=== PATIENT | female | born 1955 | race Caucasian/White ===

== ENCOUNTER 2017-07-10 06:21 | Outpatient (CLI) | payer SELFPAY | END 2017-07-10 06:22 | disposition EMS.NT | LOC: EMS 06:21 | PROVIDERS: ATTEND Surgery | DX: S80.11XA Contusion of right lower leg, initial encounter (principal); W13.8XXA Fall from, out of or through other building or structure, initial encounter; Y93.01 Activity, walking, marching and hiking; Y92.020 Kitchen in mobile home as the place of occurrence of the external cause ==

== ENCOUNTER 2019-04-22 18:13 | Emergency (ER) | payer OTHER ==
[2019-04-22 18:23] VITALS: BP 154/87
--- NOTE | 2019-04-22 18:27 | ED Physician Documentation ---
PD HPI UPPER EXT INJURY - Stated complaint Stated Complaint: R HAND LAC - Chief complaint Chief Complaint: Laceration - History obtained from History obtained from: Patient - History of Present Illness Location: Right (63-year-old woman who is up-to-date on tetanus who is on warfarin for lupus anticoagulant with history of central retinal vein occlusion in the right eye presents after cutting herself while washing dishes at home just prior to arrival.) Review of Systems Constitutional: denies: Fever, Chills Cardiac: reports: Reviewed and negative Respiratory: reports: Reviewed and negative : reports: Reviewed and negative PD PAST MEDICAL HISTORY - Allergies Allergies/Adverse Reactions: Allergies Allergy/AdvReac Type Severity Reaction Status Date / Time Sulfa (Sulfonamide Allergy Unknown Verified 04/22/19 18:24 Antibiotics) PD ED PE NORMAL - Vitals Vital signs reviewed: Yes - General General: Alert and oriented X 3, No acute distress - Extremities Extremities: Other (There is a 1 cm shallow skin defect without any tissue left in place, i.e. a skin avulsion just proximal to the fifth metacarpal head dorsally on the right hand.) - Neuro Neuro: Alert and oriented X 3, Normal speech Results - Vitals Vitals: Vital Signs - 24 hr 04/22/19 18:17 Temperature 36.4 C L Heart Rate 71 Respiratory 16 Rate Blood Pressure 154/87 H O2 Saturation 99 Oxygen O2 Source Room air PD MEDICAL DECISION MAKING - ED course ED course: Irrigated and then dressed with Gelfoam and a pressure dressing to stanch the bleeding. Departure - Departure Disposition: 01 Home, Self Care Clinical Impression: Skin avulsion Condition: Good Record reviewed to determine appropriate education?: Yes Instructions: ED Avulsion Dermal Comments: Keep the current dressing on until Tuesday morning, remove it, and then you can just simply wash it with soap and water and keep it covered with a Band-Aid and some nonstick antibiotic ointment such as bacitracin which is available [id number]. Wound check with your doctor in about a week. Your INR today is 2.8. Return if worse.
== END 2019-04-22 18:45 | disposition home or self-care (01) ==
LOC: ED 18:13
DX: S61.411A Laceration without foreign body of right hand, initial encounter (principal); W45.8XXA Other foreign body or object entering through skin, initial encounter; Y93.G1 Activity, food preparation and clean up; Y92.009 Unspecified place in unspecified non-institutional (private) residence as the place of occurrence of the external cause; Z79.01 Long term (current) use of anticoagulants
CPT/HCPCS: 85610; 99282; 99283

== ENCOUNTER 2022-03-16 18:43 | Emergency (ER) | payer MEDICARE, OTHER ==
[2022-03-16] MEDS ORDERED: DOXYCYCLINE 100 MG TABLET PO STA (19:40)
[2022-03-16] MEDS ORDERED: guaiFENesin/CODEINE 5 ML UDC PO STA (19:40)
--- NOTE | 2022-03-16 19:42 | ED Physician Documentation ---
History of Present Illness - Stated complaint Stated Complaint: SORE THROAT, SOA, COJESTED - Chief complaint Chief Complaint: General - History obtained from History obtained from: Patient, Family - Additonal information Additional information: This is a 66-year-old woman with longstanding type 1 diabetes, history of retinal vein occlusion of the right eye with blindness there, who developed an illness starting 5 days ago marked by sore throat, productive cough and fatigue. She is short of breath with it. She notes no fevers. She did not check herself for COVID but notes that she had COVID a few months ago and this is quite different and declines COVID testing here. 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: Hysterectomy HEENT: Tonsil/Adenoidectomy - Present Medications Home Medications: Ambulatory Orders Medication Instructions Recorded Confirmed Albuterol Sulf [Ventolin Hfa 1 - 2 puffs INH Q4HR PRN #1 each 03/16/22 Inhaler] Doxycycline [Vibramycin] 100 mg PO BID #14 tablet 03/16/22 guaiFENesin/CODEINE [Robitussin AC] 5 - 10 ml PO Q6H PRN #120 ml 03/16/22 - Allergies Allergies/Adverse Reactions: Allergies Allergy/AdvReac Type Severity Reaction Status Date / Time ketorolac Allergy Edema Verified 03/16/22 18:47 Sulfa (Sulfonamide Allergy Unknown Verified 03/16/22 18:47 Antibiotics) - Social History Does the pt smoke?: No Smoking Status: Never smoker Does the pt drink ETOH?: No Does the pt have substance abuse?: No - Immunizations Immunizations are current?: Yes - POLST Patient has POLST: No PD ED PE NORMAL - Vitals Vital signs reviewed: Yes - General General: Alert and oriented X 3, No acute distress - HEENT HEENT: Ears normal, Pharynx benign - Neck Neck: Supple, no meningeal sign, No bony TTP - Cardiac Cardiac: RRR, No murmur - Respiratory Respiratory: No respiratory distress, Other (Mild diffuse expiratory wheezes without focal findings, nonlabored) - Abdomen Abdomen: Soft, Non tender - Back Back: No CVA TTP, No spinal TTP - Derm Derm: Normal color, Warm and dry - Extremities Extremities: No edema, No calf tenderness / cord - Neuro Neuro: Alert and oriented X 3, Normal speech Results - Vitals Vitals: Vital Signs - 24 hr 03/16/22 03/16/22 18:47 19:17 Temperature 36.8 C Heart Rate 87 Respiratory 20 16 Rate Blood Pressure 152/75 H O2 Saturation 92 Oxygen O2 Source Room air PD MEDICAL DECISION MAKING - ED course ED course: 66-year-old woman with multiple comorbidities presents with bronchitis we will treat with antibiotic given her underlying health status. Departure - Departure Disposition: 01 Home, Self Care Clinical Impression: Bronchitis Type 1 diabetes Qualifiers: Diabetes mellitus complication status: with hyperglycemia Qualified Code(s): E10.65 - Type 1 diabetes mellitus with hyperglycemia Condition: Good Record reviewed to determine appropriate education?: Yes Instructions: ED Upper Resp Infec Abx Tx Prescriptions: Albuterol Sulf [Ventolin Hfa Inhaler] 1 - 2 puffs INH Q4HR PRN #1 each PRN Reason: Shortness Of Air/Wheezing guaiFENesin/CODEINE [Robitussin AC] 5 - 10 ml PO Q6H PRN #120 ml PRN Reason: Cough Doxycycline [Vibramycin] 100 mg PO BID #14 tablet Comments: I sent your prescriptions electronically to the [facility] in [place]. Do not drink or drive while taking prescription cough medication. Call your doctor to arrange a follow-up appointment, make the next available appointment. In the interim, return anytime if worse or if new symptoms develop.
[2022-03-16 19:54] VITALS: BP 169/81
== END 2022-03-16 20:00 | disposition home or self-care (01) ==
LOC: ED 18:43
DX: J40 Bronchitis, not specified as acute or chronic (principal); E10.65 Type 1 diabetes mellitus with hyperglycemia
CPT/HCPCS: 99283; A9270

== ENCOUNTER 2022-09-17 19:01 | Outpatient (CLI) | payer MEDICARE, OTHER | END 2022-09-17 19:02 | disposition EMS.NT | LOC: EMS 19:01 | DX: Z03.89 Encounter for observation for other suspected diseases and conditions ruled out (principal) ==

== ENCOUNTER 2023-07-20 13:45 | Outpatient (CLI) | payer MEDICARE, OTHER | END 2023-07-20 14:00 | disposition home or self-care (01) | LOC: LAB.N 13:45 | PROVIDERS: ATTEND Nurse Practitioner | DX: J02.9 Acute pharyngitis, unspecified (principal) | CPT/HCPCS: 87070 ==

== ENCOUNTER 2023-12-14 12:23 | Outpatient (CLI) | payer MEDICARE, OTHER | END 2023-12-14 23:59 | disposition EMS.NT | LOC: EMS 12:23 | DX: E11.649 Type 2 diabetes mellitus with hypoglycemia without coma (principal) ==